=== PATIENT | female | born 1985 | race Caucasian/White ===

== ENCOUNTER 2016-09-21 09:16 | Emergency (ER) | payer OTHER ==
[~2016-09-21] VITALS: Ht 160 cm; Wt 52.0 kg
[~2016-09-21 09:16] MED LIST: ANUSOL-HC21 GM PR; BACTRIM,SEPT1 TABLET PO; CITALOPRAM HBR20 M1 PO; FLEXERIL10 MG PO; LORTAB 5-325 M1 EACH PO; MOBIC15 MG PO; MOTRIN600 MG PO; NAPROSYN500 MG PO; NO HOME MEDS; SKELAXIN800 MG PO; ULTRAM50 MG PO
[2016-09-21 10:27] LABS: EOSINOPHIL (%) 3.6 % (0-5); EOSINOPHIL COUNT 0.2 K/uL (0-0.3); HEMATOCRIT 39.8 % (36.0-46.0); IMMATURE GRANULOCYTE (%) 0.2 % (0.0-0.7); INSTRUMENT ABS NEUTROPHIL CT 2.9 K/uL; LYMPHOCYTE COUNT 1.8 K/uL (1.0-2.8); MCH 31.7 PG (29.0-34.0); MCHC 34.9 G/DL (30.0-36.0); MCV 90.7 FL (83-99); MEAN PLAT.VOLUME 9.7 uM^3 (9.5-12.4); MONOCYTE COUNT 0.5 K/uL (0-0.8); NEUTROPHIL (%) 53.4 % (45-76); NEUTROPHIL COUNT 2.9 K/uL (1.8-6.4); PLATELET COUNT 207 K/uL (156-360); RBC DIS.WIDTH-SD 39.6 % (39-53); RED BLOOD COUNT 4.39 M/uL (3.80-5.20); WHITE BLOOD COUNT 5.3 K/uL (4.1-10.2)
[2016-09-21 10:35] LABS: CHLORIDE 104 mEq/L (99-109); POTASSIUM 3.9 mEq/L (3.7-5.4); SODIUM 138 mEq/L (136-147)
[2016-09-21 10:37] LABS: GLUCOSE 95 mg/dL (70-99)
[2016-09-21 10:38] LABS: ANION GAP 7 MEQ/L (2-14)
[2016-09-21 10:39] LABS: TOTAL BILIRUBIN 0.3 mg/dL (0.0-1.0)
[2016-09-21 10:41] LABS: ALKALINE PHOSPHATASE 64 IU/L (3-129); GFR ESTIMATE (CALCULATED) > 59 mL/min/
[2016-09-21 10:42] LABS: UREA NITROGEN (BUN) 12 mg/dL (9-23)
[2016-09-21 10:44] LABS: LIPASE 24 U/L (1.0-51.0)
[2016-09-21 10:45] LABS: ADD MIUA? YES; BILIRUBIN NEGATIVE; BLOOD NEGATIVE; COLOR YELLOW ((YELLOW)); GLUCOSE (STRIP) NEGATIVE; KETONES 5; LEUKOCYTES MODERATE; NITRITE NEGATIVE; PROTEIN (STRIP) NEGATIVE; SPECIFIC GRAVITY 1.025 (1.000-1.030)
[2016-09-21 10:47] LABS: BACTERIA RARE /HPF; EPITHELIAL CELLS 1+ /HPF; MUCUS TRACE /LPF; RED BLOOD CELLS 0-5 /HPF (0-5); WHITE BLOOD CELLS 0-5 /HPF (0-5)
[2016-09-21 10:50] LABS: QUANTITATIVE HCG < 4.0 MIU/ML
[2016-09-21] MEDS ORDERED: MIRALAX17 GM PO (13:03)
[2016-09-21] MEDS ORDERED: BENTYL20 MG PO (13:03)
[2016-09-21 13:24] VITALS: BP 113/76
== END 2016-09-21 13:25 | disposition home or self-care (01) ==
LOC: EME 09:16
PROVIDERS: Emergency Medicine
DX: R10.84 Generalized abdominal pain (principal); K59.00 Constipation, unspecified; F17.200 Nicotine dependence, unspecified, uncomplicated
CPT/HCPCS: 74177; 80053; 81003; 83690; 84702; 85025; 99281; 99285; J1885; J7030

== ENCOUNTER 2017-08-03 09:42 | Emergency (ER) | payer SELFPAY ==
[~2017-08-03] VITALS: Ht 160 cm; Wt 64.0 kg
[~2017-08-03 09:42] MED LIST changes: +BENTYL20 MG PO; +MIRALAX17 GM PO
[2017-08-03] MEDS ORDERED: MOBIC7.5 MG PO (11:17)
[2017-08-03] MEDS ORDERED: ROBAXIN750 MG PO (11:17)
[2017-08-03] MEDS ORDERED: LIDODERM 5% P1 PATCH TD (11:17)
[2017-08-03 11:44] VITALS: BP 136/81
== END 2017-08-03 12:03 | disposition home or self-care (01) ==
LOC: EME 09:42
DX: S16.1XXA Strain of muscle, fascia and tendon at neck level, initial encounter (principal); M62.838 Other muscle spasm; X50.9XXA Other and unspecified overexertion or strenuous movements or postures, initial encounter; Z88.8 Allergy status to other drugs, medicaments and biological substances
CPT/HCPCS: 99281; 99285; J1885